=== PATIENT | female | born 1990 | race Caucasian/White ===

== ENCOUNTER 2021-07-05 10:00 | Emergency (ER) | payer OTHER ==
[~2021-07-05] VITALS: Ht 165.1 cm; Wt 149.0 kg
--- NOTE | 2021-07-05 10:45 | NUR ---
[employer]: PT TO ROOM FROM TANIYA ROCHA
--- NOTE | 2021-07-05 10:54 | NUR ---
PT AMBULATORY TO ROOM 37 W/ C/O SORE THROAT STARTED 3 DAYS AGO AND NOW HAS A COUGH AND A RUNNY NOSE. SOB WHEN COUGHING. PT RESTING ON GURNEY. NADN. PT NOT VACCINATED. VSS.
[2021-07-05 10:59] VITALS: BP 128/88
== END 2021-07-05 12:30 | disposition home or self-care (01) ==
LOC: ED 12:20
DX: J06.9 Acute upper respiratory infection, unspecified (principal); Z20.822 Contact with and (suspected) exposure to COVID-19
CPT/HCPCS: 71045; 99284; U0003; U0005